=== PATIENT | male | born 1995 | race Caucasian/White ===

== ENCOUNTER 2017-04-19 17:30 | Emergency (ER) | payer MEDICAID ==
--- NOTE | 2017-04-19 17:58 | EDM.PDOC ---
ED HPI GENERAL MEDICAL PROBLEM - General Chief Complaint: ENT Problem Stated Complaint: NASAL DRAINAGE Time Seen by Provider: 04/19/17 17:40 Source of Information: Reports: Patient History Limitations: Reports: No Limitations - History of Present Illness INITIAL COMMENTS - FREE TEXT/NARRATIVE: Fer is a 21 yo male who presents to the ER with concerns of a clear to yellowish liquid coming from his nose. He states this afternoon it started running out and draining down the back of his throat. His girlfriend admits she searched the internet for what would cause clear to yellow liquid draining from the nose and saw CSF leak. She became worried and thought he better be seen in the ER. Denies any recent trauma. States he fell on the ice about 3 weeks ago but did not lose any consciousness. 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 Admits to no vision loss today. He has otherwise been feeling well. Admits he held a kleenex to his nose and it stopped. He hasn't noticed any bruising behind the ears or to the head. Admits he had a headache to the right side of his forehead about 20 minutes prior to his nose running. It has completely subsided since. Denies any symptoms presently. States he did have a CT of the brain about a year ago d/t his headaches but it came back normal. Onset: Today Duration: Resolved Prior to Arrival - Related Data Allergies Allergy/AdvReac Type Severity Reaction Status Date / Time No Known Allergies Allergy Verified 04/19/17 17:37 Home Meds: Home Meds . [No Known Home Meds] 03/22/17 [History] Past Medical History HEENT History: Reports: None Cardiovascular History: Reports: None Respiratory History: Reports: None Gastrointestinal History: Reports: None Genitourinary History: Reports: None Musculoskeletal History: Reports: None Neurological History: Reports: Head Trauma Psychiatric History: Reports: None Endocrine/Metabolic History: Reports: None Hematologic History: Reports: None Immunologic History: Reports: None Oncologic (Cancer) History: Reports: None Dermatologic History: Reports: None - Past Surgical History Male Surgical History: Reports: Other (See Below) Other Male Surgeries/Procedures: Testicular Torsion at the age of 15 surgical repaired Social & Family History - Tobacco Use Smoking Status *Q: Current Every Day Smoker Years of Tobacco use: 5 Packs/Tins Daily: 1 - Caffeine Use Caffeine Use: Reports: Soda - Recreational Drug Use Recreational Drug Use: No ED ROS ENT - Review of Systems Review Of Systems: ROS reveals no pertinent complaints other than HPI. Constitutional: Denies: Fever, Chills, Decreased Appetite HEENT: Reports: Other (clear nasal drainage. ). Denies: Eye Discharge, Eye Pain , Hearing Loss, Nose Pain, Sinus Problem, Throat Pain Respiratory: Reports: No Symptoms Cardiovascular: Reports: No Symptoms GI/Abdominal: Reports: No Symptoms : Reports: No Symptoms Musculoskeletal: Reports: No Symptoms Skin: Reports: No Symptoms Neurological: Reports: Headache (resolved). Denies: Confusion, Dizziness, Numbness, Paresthesia, Pre-Existing Deficit, Tingling, Difficulty Walking, Change in Speech, Gait Disturbance Psychiatric: Reports: No Symptoms ED EXAM, ENT - Physical Exam Exam: See Below Exam Limited By: No Limitations General Appearance: Alert, No Apparent Distress Eye Exam: Bilateral Eye: EOMI, Normal Inspection, PERRL Ears: Normal External Exam, Normal Canal, Hearing Grossly Normal, Normal TMs. No: Auricular Ecchymosis, Auricular Tenderness, Canal Blood Nose: Normal Inspection, Normal Mucousa, No Blood Mouth/Throat: Normal Inspection, Normal Lips, Normal Oropharynx, Normal Teeth Head: Atraumatic, Normocephalic. No: Scalp Swelling, Scalp Hematoma, Facial Ecchymosis Neck: Normal Inspection, Supple, Non-Tender Respiratory/Chest: No Respiratory Distress, Lungs Clear, Normal Breath Sounds, No Accessory Muscle Use Cardiovascular: Regular Rate, Rhythm, No Murmur Extremities: Normal Inspection Neurological: Alert, Oriented, CN II-XII Intact, Normal Cognition, No Motor/ Sensory Deficits. No: Unresponsive, Memory Loss Remote Events, Memory Loss Recent Events Psychiatric: Normal Affect, Normal Mood Skin: Warm, Dry, Intact, Normal Color, No Rash Course - Vital Signs Last Recorded V/S: Last Vital Signs Temp 98.2 F 04/19/17 17:31 Pulse 103 H 04/19/17 17:31 Resp 16 04/19/17 17:31 BP 143/78 H 04/19/17 17:31 Pulse Ox 99 04/19/17 17:31 Departure - Departure Time of Disposition: 18:01 Disposition: Home, Self-Care 01 Clinical Impression: Normal physical exam - Discharge Information Forms: ED Department Discharge Additional Instructions: 1) Exam was grossly benign 2) Discussed obtaining MRI for chronic headaches and recommend seeing primary provider to discuss 3) Advise if symptoms return or any concerns at all, please return or call the nursing station at [phone] - Problem List & Annotations (1) Normal physical exam SNOMED Code(s): 384639988 Code(s): Z00.00 - ENCNTR FOR GENERAL ADULT MEDICAL EXAM W/O ABNORMAL FINDINGS Status: Acute Current Visit: Yes - Problem List Review Problem List Initiated/Reviewed/Updated: Yes - Assessment/Plan Plan: See additional instructions. Discussed signs and symptoms to watch for. Advise if any concerns at all to return to ER or call if any questions.
== END 2017-04-19 18:05 | disposition home or self-care (01) ==
LOC: CC.ED 17:30
DX: Z00.00 Encounter for general adult medical examination without abnormal findings (principal); F17.210 Nicotine dependence, cigarettes, uncomplicated
CPT/HCPCS: 99282